=== PATIENT | female | born 1940 | race Caucasian/White ===

== ENCOUNTER 2021-04-09 02:10 | Day surgery (SDC) | payer MEDICARE, BC, SELFPAY ==
[2021-03-24 10:55] VITALS: BMI 23.1
[2021-04-09 09:41] VITALS: BP 138/48; PULSE 84; RESP 16; TEMP 36.4; O2SAT 97; BMI 22.8
[2021-04-09] MEDS: LACTATED RINGERS 1,000 ML 150 ML IV CONT (09:55)
--- NOTE | 2021-04-09 10:05 | WPDGICN ---
Assessment and Plan Assessment and plan (1) History of colon polyps: Code(s): Z86.010 - Personal history of colonic polyps Status: Acute Assessment and Plan: Patient has a history of colon polyps. For this reason surveillance colonoscopy to be performed today. Also to evaluate her diarrhea. (2) Chronic diarrhea: Code(s): K52.9 - Noninfective gastroenteritis and colitis, unspecified Status: Acute Assessment and Plan: Patient has chronic diarrhea attributed to irritable bowel syndrome. Currently takes Lomotil for relief of symptoms. Fiber supplements are encouraged. This will be assessed additionally at the time of colonoscopy. GI Consult Note Consult date/time: 04/09/21 10:05 HPI: Amy Rogers is a 80 year old female Presents for colonoscopy. Patient does have a prior history of colon polyps. She also reports an ongoing history of diarrhea for many years. She has had an extensive workup that has been noncontributory. It is felt that she likely has irritable bowel syndrome with diarrhea predominance. Currently she takes Lomotil for relief of diarrhea. Plan is for a colonoscopy at this time further recommendations will be given after endoscopy. Fiber supplements are felt to be beneficial. Review of Systems Review of Systems: All systems reviewed & are unremarkable except as noted in HPI and below PMFSH Past Medical History Medical History (Updated 04/09/21 @ 10:06 by Omer Barahona MD) Asthma Depression Hyperlipidemia IBS (irritable bowel syndrome) RLS (restless legs syndrome) Family History Family History Mother Heart disease Social History Social History Smoking status: Never smoker Alcohol intake: never Substance use: never Living arrangements: alone Spiritual care concerns: No Meds Home Medications and Allergies Home Medications Medication Instructions Recorded Confirmed Type atorvastatin 10 mg tablet 10 mg PO DAILY 02/04/21 03/24/21 History escitalopram oxalate 20 mg tablet 20 mg PO DAILY 02/04/21 03/24/21 History famotidine 20 mg tablet 20 mg PO DAILY PRN 02/04/21 03/24/21 History ibuprofen 200 mg capsule 200 mg PO Q6H PRN 02/04/21 03/24/21 History loperamide 2 mg tablet 8 mg PO DAILY 02/04/21 03/24/21 History mometasone 0.1 % topical cream 1 applic TOPICAL DAILY 02/04/21 03/24/21 History fluticasone propionate [Flovent 2 inh INHALATION DAILY PRN 03/24/21 03/24/21 History HFA] ka-tf-fwik-[id number]-Ca carb-vit K 1 tablet PO DAILY 03/24/21 03/24/21 History [Women's Multivitamin] Allergies Allergy/AdvReac Type Severity Reaction Status Date / Time Sulfa (Sulfonamide Allergy Severe Anaphylaxis Verified 03/24/21 10:51 Antibiotics) sulfamethoxazole Allergy Severe Anaphylaxis Verified 03/24/21 10:51 [From Sulfamethoxazole-Trimethoprim] trimethoprim Allergy Severe Anaphylaxis Verified 03/24/21 10:51 [From Sulfamethoxazole-Trimethoprim] cephalexin Allergy Mild Unknown Verified 03/24/21 10:51 metoclopramide Allergy Mild Unknown Verified 03/24/21 10:51 naproxen [From Aleve] Allergy Mild Unknown Verified 03/24/21 10:51 pimecrolimus Allergy Mild Unknown Verified 03/24/21 10:51 succinylcholine Allergy Mild Unknown Verified 03/24/21 10:51 Vital Signs Vital Signs - 24 hr 04/09/21 09:41 Temperature 97.5 F L Pulse Rate 84 Respiratory Rate 16 Blood Pressure 138/48 L Pulse Oximetry 97 Exam Narrative: physical exam reveals patient to be alert. Vital signs stable. HEENT exam is unremarkable. Patient is anicteric. Lungs are clear to auscultation and percussion. Heart is without murmur or extra sounds. Abdominal exam bowel sounds are present soft nontender with no organomegaly. Digital external rectal exam is normal.
--- NOTE | 2021-04-09 10:41 | WPDANESEPPF ---
Anes - Initial Pre Proc Eval Procedure: Operation Date: 04/09/21 10:45 Proposed Procedures p Screening Colonoscopy - Omer Barahona MD Date/Time: 04/09/21 10:41 Surgeon: Omer Barahona MD Pre Op Diagnosis: hx of colon polyps Patient Data Age: 80 Gender: F Height: 1.5 m Weight: 51.3 kg Last Vital Signs Temp 97.5 F L 04/09/21 09:41 Pulse 84 04/09/21 09:41 Resp 16 04/09/21 09:41 BP 138/48 L 04/09/21 09:41 Pulse Ox 97 04/09/21 09:41 Allergies Allergy/AdvReac Type Severity Reaction Status Date / Time Sulfa (Sulfonamide Allergy Severe Anaphylaxis Verified 03/24/21 10:51 Antibiotics) sulfamethoxazole Allergy Severe Anaphylaxis Verified 03/24/21 10:51 [From Sulfamethoxazole-Trimethoprim] trimethoprim Allergy Severe Anaphylaxis Verified 03/24/21 10:51 [From Sulfamethoxazole-Trimethoprim] cephalexin Allergy Mild Unknown Verified 03/24/21 10:51 metoclopramide Allergy Mild Unknown Verified 03/24/21 10:51 naproxen [From Aleve] Allergy Mild Unknown Verified 03/24/21 10:51 pimecrolimus Allergy Mild Unknown Verified 03/24/21 10:51 succinylcholine Allergy Mild Unknown Verified 03/24/21 10:51 Home Medications Medication Instructions Recorded Confirmed Type atorvastatin 10 mg tablet 10 mg PO DAILY 02/04/21 03/24/21 History escitalopram oxalate 20 mg tablet 20 mg PO DAILY 02/04/21 03/24/21 History famotidine 20 mg tablet 20 mg PO DAILY PRN 02/04/21 03/24/21 History ibuprofen 200 mg capsule 200 mg PO Q6H PRN 02/04/21 03/24/21 History loperamide 2 mg tablet 8 mg PO DAILY 02/04/21 03/24/21 History mometasone 0.1 % topical cream 1 applic TOPICAL DAILY 02/04/21 03/24/21 History fluticasone propionate [Flovent 2 inh INHALATION DAILY PRN 03/24/21 03/24/21 History HFA] ba-go-xwew-FA-Ca carb-vit K 1 tablet PO DAILY 03/24/21 03/24/21 History [Women's Multivitamin] Patient hx anesthesia problems: none Family hx anesthesia problems: none Results Review: All pre-operative results and documents have been reviewed as part of the pre-operative evaluation. [facility] Past Medical History Medical History (Updated 04/09/21 @ 10:06 by Omer Barahona MD) Asthma Depression Hyperlipidemia IBS (irritable bowel syndrome) RLS (restless legs syndrome) Family History Family History Mother Heart disease Social History Social History Smoking status: Never smoker Alcohol intake: never Substance use: never Living arrangements: alone Spiritual care concerns: No Anes - Eval Final PreProcedure Day of Procedure 04/09/21 10:41 Patient weight: normal Heart: regular rate and rhythm Lungs: clear to auscultation Airway: Mallampati scale class II Neurological: alert and oriented Last oral intake: >/= 8 hours ASA classification: II Emergent: no Anesthetic plan: proceed Anesthesia type and monitoring: general GIVS and standard monitoring Results Review: All pre-operative results and documents have been reviewed as part of the pre-operative evaluation. Informed Consent: The patient's anesthetic plan and its attendant risks and benefits were discussed with the patient/family/POA. Questions were solicited and answers provided to the satisfaction of the patient/family/POA.
[2021-04-09 11:07] VITALS: BP 95/44; PULSE 84; RESP 19; O2SAT 94
[2021-04-09 11:17] VITALS: BP 95/44; PULSE 81; RESP 17; O2SAT 96
[2021-04-09 11:27] VITALS: BP 111/68; PULSE 78; RESP 30; O2SAT 98
== END 2021-04-09 12:00 | disposition home or self-care (01) ==
PROVIDERS: PCP Internal Medicine; Visit Provider Internal Medicine Gastroenterology
PROC: 0DJD8ZZ Inspection of Lower Intestinal Tract, Via Natural or Artificial Opening Endoscopic (ICD-10-PCS; CPT 45378; principal; 2021-04-09 10:45)
DX: Z12.11 Encounter for screening for malignant neoplasm of colon (principal); K64.8 Other hemorrhoids; Z86.010 Personal history of colon polyps; K58.0 Irritable bowel syndrome with diarrhea; E78.5 Hyperlipidemia, unspecified; J45.909 Unspecified asthma, uncomplicated; G25.81 Restless legs syndrome; F32.9 Major depressive disorder, single episode, unspecified; Z79.51 Long term (current) use of inhaled steroids
CPT/HCPCS: G0105; J2704; J7120